=== PATIENT | female | born 1955 | race Caucasian/White ===

== ENCOUNTER 2024-12-18 12:06 | Emergency (ER) | payer MEDICAID ==
[~2024-12-18] VITALS: Ht 165.1 cm; Wt 68.0 kg
[2024-12-18 13:45] VITALS: BP 115/70; O2SAT 98
[2024-12-18] MEDS ORDERED: IBUP-1957 PO (13:55)
== END 2024-12-18 13:45 | disposition home or self-care (01) ==
LOC: ER 12:06
DX: M75.31 Calcific tendinitis of right shoulder (principal); M19.90 Unspecified osteoarthritis, unspecified site; M54.2 Cervicalgia
CPT/HCPCS: 72125; 73030; 73060; A4606; A4663